=== PATIENT | male | born 1995 | race Caucasian/White ===

== ENCOUNTER 2017-08-24 21:19 | Emergency (ER) | payer MEDICAID ==
[~2017-08-24] VITALS: Ht 165.1 cm; Wt 60.4 kg
[~2017-08-24 21:19] MED LIST: FLUO10CA13; METH54TA4
[2017-08-24] MEDS ORDERED: DIPHENHYDRAMINE 25 MG CAPSULE ONE (21:58)
[2017-08-24] MEDS ORDERED: DIPHENHYDRAMINE 25 MG CAPSULE PO ONE (22:00)
[2017-08-24 23:20] VITALS: BP 102/62
== END 2017-08-24 23:22 | disposition home or self-care (01) ==
LOC: ED 23:10
DX: R21 Rash and other nonspecific skin eruption (principal)
CPT/HCPCS: 93005; 99283; Q0163

== ENCOUNTER 2019-07-21 10:45 | Emergency (ER) | payer MEDICAID ==
[~2019-07-21] VITALS: Ht 170.2 cm; Wt 64.7 kg
--- NOTE | 2019-07-21 11:34 | NUR ---
PT TO ED FOR NEAR SYNCOPAL EPISODE TODAY AT WORK. PT REPORTS DIZZINESS DURING EPISODE, BUT THAT HAS RESOLVED NOW. PT STATES HE DRANK WATER AND ORANGE JUICE, AND THEN FELT COLD. PT WORRIED THAT HE HAD A SEIZURE BECAUSE BOSS AND MOTHER STATED HE WAS SHAKING. PT REPORTS NO POST-ICTAL PERIOD, REMEMBERS ALL EVENTS, NO INCONTINENCE AND DID NOT BITE TONGUE. PT CONNECTED TO ALL MONITORS. VSS. PIT ORDERS RECEIVED. ALARM OPERATOR TO BS FOR DRAW. EKG COMPLETE. AWAITING EDMD ASSESSMENT.
[2019-07-21 11:46] LABS: BASOPHILS # (AUTO) 0.03 x10^3/uL (0-0.1); BASOPHILS % (AUTO) 1 % (0-1); EOSINOPHILS # (AUTO) 0.19 x10^3/uL (0-0.4); EOSINOPHILS % (AUTO) 3 % (1-7); LYMPHOCYTES # (AUTO) 1.25 x10^3/uL (1-3.4); LYMPHOCYTES % (AUTO) 20 % (22-44); MD NO; MEAN CORPUSCULAR HEMOGLOBIN 29.7 pg (27.5-34.5); MEAN CORPUSCULAR HGB CONC 32.8 g/dL (33.2-36.2); MEAN CORPUSCULAR VOLUME 90.8 fL (81-97); MEAN PLATELET VOLUME 8.1 fL (7.4-10.4); MONOCYTES # (AUTO) 0.55 x10^3/uL (0.2-0.8); MONOCYTES % (AUTO) 9 % (2-9); NEUTROPHILS # (AUTO) 4.39 x10^3/uL (1.8-6.8); NEUTROPHILS % (AUTO) 69 % (42-75); PLATELET COUNT 197 x10^3/uL (130-400); RED BLOOD COUNT 5.23 x10^6/uL (4.38-5.82); RED CELL DISTRIBUTION WIDTH 13.6 % (9.4-14.8)
--- NOTE | 2019-07-21 11:51 | NUR ---
WATER PROVIDED PER [facility] REQUEST.
[2019-07-21 11:57] LABS: ANION GAP 6 mmol/L (5-15); CALCIUM 9.1 mg/dL (8.5-10.1); CHLORIDE 107 mmol/L (98-107); CREATININE 0.82 mg/dL (0.7-1.3)
--- NOTE | 2019-07-21 12:41 | NUR ---
pt up self to rr to provide sample for ua. ua collected and sent. pt reconnected to monitors. vss. no needs expressed. call light within reach. awaiting resutls.
[2019-07-21 12:56] LABS: MICROSCOPIC AUTO
[2019-07-21 12:57] LABS: CULTURE INDICATED? YES
--- NOTE | 2019-07-21 13:18 | NUR ---
all results back at this time. chart up for recheck.
[2019-07-21 13:59] VITALS: BP 121/67
--- NOTE | 2019-07-21 13:59 | NUR ---
DEMD TO BS TO UPDATE ON RESULTS AND POC. PLAN TO DC. PT DRESSING NOW.
== END 2019-07-21 14:41 | disposition home or self-care (01) ==
LOC: ED 11:44
DX: N30.00 Acute cystitis without hematuria (principal); R55 Syncope and collapse
CPT/HCPCS: 36415; 80048; 81001; 82040; 85025; 87077; 87086; 87186; 87491; 87591; 93005; 99284

== ENCOUNTER 2019-10-20 05:25 | Emergency (ER) | payer MEDICAID ==
[~2019-10-20] VITALS: Ht 167.6 cm; Wt 62.3 kg
[2019-10-20 05:28] VITALS: BP 135/68
== END 2019-10-20 06:04 | disposition home or self-care (01) ==
LOC: ED 05:45
DX: J06.9 Acute upper respiratory infection, unspecified (principal); R42 Dizziness and giddiness
CPT/HCPCS: 93005; 99283

== ENCOUNTER 2020-01-28 12:08 | Emergency (ER) | payer MEDICAID ==
[~2020-01-28] VITALS: Ht 170.2 cm; Wt 74.1 kg
[2020-01-28 12:39] LABS: BASOPHILS # (AUTO) 0.05 x10^3/uL (0-0.1); BASOPHILS % (AUTO) 1 % (0-1); EOSINOPHILS # (AUTO) 0.14 x10^3/uL (0-0.4); EOSINOPHILS % (AUTO) 2 % (1-7); LYMPHOCYTES # (AUTO) 1.32 x10^3/uL (1-3.4); LYMPHOCYTES % (AUTO) 19 % (22-44); MD NO; MEAN CORPUSCULAR HEMOGLOBIN 30.1 pg (27.5-34.5); MEAN CORPUSCULAR HGB CONC 33.6 g/dL (33.2-36.2); MEAN CORPUSCULAR VOLUME 89.7 fL (81-97); MONOCYTES # (AUTO) 0.49 x10^3/uL (0.2-0.8); MONOCYTES % (AUTO) 7 % (2-9); NEUTROPHILS # (AUTO) 5.01 x10^3/uL (1.8-6.8); NEUTROPHILS % (AUTO) 72 % (42-75); PLATELET COUNT 226 x10^3/uL (130-400); RED BLOOD COUNT 5.32 x10^6/uL (4.38-5.82); RED CELL DISTRIBUTION WIDTH 12.8 % (9.4-14.8)
[2020-01-28 12:51] LABS: ALANINE AMINOTRANSFERASE 45 U/L (12-78); ANION GAP 4 mmol/L (5-15); CALCIUM 8.9 mg/dL (8.5-10.1); CHLORIDE 106 mmol/L (98-107); CREATININE 0.82 mg/dL (0.7-1.3)
[2020-01-28 12:54] LABS: ALKALINE PHOSPHATASE 98 U/L (45-117); BILIRUBIN,TOTAL 0.4 mg/dL (0.2-1.0); TOTAL PROTEIN 7.3 g/dL (6.4-8.2)
[2020-01-28] MEDS ORDERED: SODIUM CHLORIDE FLUSH 10ML SYR IVF ONE (13:30)
[2020-01-28 14:54] LABS: MICROSCOPIC AUTO
[2020-01-28] MEDS ORDERED: OMNIPAQUE 350 MG/ML, 100ML BOTTLE ONE (15:09)
[2020-01-28 16:06] VITALS: BP 121/75
== END 2020-01-28 16:56 | disposition home or self-care (01) ==
LOC: ED 14:04
DX: N39.0 Urinary tract infection, site not specified (principal); K59.00 Constipation, unspecified
CPT/HCPCS: 36415; 74177; 80053; 81001; 83690; 85025; 87077; 87086; 99285; Q9967; 87186